=== PATIENT | male | born 2000 | race Caucasian/White ===

== ENCOUNTER 2023-03-13 08:53 | Emergency (ER) | payer SELFPAY ==
[2023-03-13 09:05] VITALS: BMI 20.4
[2023-03-13 09:10] VITALS: TEMP 36.8
--- NOTE | 2023-03-13 09:13 | CT_ITS ---
WS: [id number] CT HEAD NONCONTRAST HISTORY: andres TECHNIQUE: Contiguous axial imaging performed through the brain in 2.5 mm imaging. Bone and soft tiss ue windows. Sagittal and coronal reformats reviewed. All CT scans at [facility] use at least one of these dose optimization techniques: automated exposure control; mA and/or kV adjustment per pa tient size (includes targeted exams where dose is matched to clinical indication); or iterative recon struction. DLP: 1044.23 mGy.cm COMPARISON: None available. No acute intracranial hemorrhage, midline shift or mass effect. No atrophy or prior infarcts or herniation. CSF collection in the retrocerebellar region extends bila terally. There is no mass effect upon the brain. Consistent with bilateral retrocerebellar arachnoid cysts. Ventricles: Normal size with no hydrocephalus. No inferior displacement the cerebellar tonsil. Paranasal sinuses: As visualized are clear. Mastoid air cells: Well pneumatized. Calvarium and scalp: Skull is intact with no soft tissue edema or swelling. IMPRESSION: 1. No acute intracranial hemorrhage or edema. 2. No ventriculomegaly or mass effect. 3. Retrocerebellar arachnoid cyst.
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
[2023-03-13 10:21] VITALS: BP 120/66; PULSE 59; O2SAT 99
[2023-03-13] MEDS: ondansetron 4 MG Tablet PO (10:21)
[2023-03-13] MEDS: naproxen 500 mg Tablet PO (10:22)
[2023-03-13 10:24] VITALS: BP 131/72; PULSE 67; O2SAT 99
== END 2023-03-13 10:26 | disposition home or self-care (01) ==
PROVIDERS: Emergency Provider Emergency Medicine
DX: S09.8XXA Other specified injuries of head, initial encounter (principal); W50.0XXA Accidental hit or strike by another person, initial encounter; Y93.71 Activity, boxing
CPT/HCPCS: 70450; 99284; Q0162

== ENCOUNTER 2023-04-22 15:31 | Emergency (ER) | payer SELFPAY ==
[2023-04-22 15:35] VITALS: BP 117/78; PULSE 87; RESP 16; TEMP 37.1; O2SAT 98; BMI 20.4
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
== END 2023-04-22 17:01 | disposition home or self-care (01) ==
PROVIDERS: Emergency Provider Physician Assistant
DX: S80.00XA Contusion of unspecified knee, initial encounter (principal); S16.1XXA Strain of muscle, fascia and tendon at neck level, initial encounter; V89.2XXA Person injured in unspecified motor-vehicle accident, traffic, initial encounter
CPT/HCPCS: 72040; 99283

== ENCOUNTER 2023-07-26 10:15 | Emergency (ER) | payer SELFPAY ==
[2023-07-26 10:28] VITALS: BP 125/75; PULSE 75; RESP 18; TEMP 36.3; O2SAT 98
[2023-07-26 10:34] VITALS: BP 125/75; PULSE 75; RESP 18; O2SAT 98
--- NOTE | 2023-07-26 10:35 | ED_ITS ---
HPI - General Adult General: Chief complaint: Nausea/Vomiting/Diarrhea Stated complaint: Fever, N/V, body aches Time Seen by Provider: 07/26/23 10:16 Source: patient Mode of arrival: ambulatory Limitations: no limitations History of Present Illness: Patient is a 23-year-old male who presents to ED today requesting a return to work note. Patient states approximately 5 to 6 days ago he began having albaro dyaches, nausea, vomiting, subjective fevers, and a mild cough. He states he lives with his mother who is also ill with high fevers of up to 101, body aches, vomiting, cough. He states both of them are recovering and most of his symptoms have completely subsided apart from some mild bodyaches. He has not run fevers in several days. 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 Onset (ago): day(s) Severity: mild Pain Consistency: now resolved Relieving factors: none Exacerbating factors: none Associated symptoms: Deny chest pain, diaphoresis, dyspnea, headache(s), malaise, nausea, rash or vomiting Treatments prior to arrival: none Review of Systems Const: Reports: body aches; Denies: fever(s), chills, change in appetite, change in weight, fatigue, malaise, night sweats or diaphoresis Eyes: Denies: change in vision, blurry vision, photophobia, eye discomfort, eye discharge, eye redness, floaters or seeing flashes ENMT: Denies: throat pain, odynophagia, ear or mastoid pain, nasal discharge, nasal congestion or sinus pain Card: Denies: chest pain Resp: Denies: dyspnea GI: Denies: abdominal pain, nausea, vomiting or diarrhea Musc: Denies: neck pain, back pain, extremity pain or joint pain Skin/Breast: Denies: rash Neuro: Denies: headache(s) or dizziness Physical Exam Const: COMMON NORMALS: no acute distress, average body habitus, patient oriented x3, no limitations, healthy appearing, alert and well nourished G ENERAL APPEARANCE: cooperative ORIENTATION/CONSCIOUSNESS: Yes awake, Yes oriented to person, Yes oriented to place and Yes oriented to time HENMT: COMMON NORMALS: normocephalic, atraumatic, hearing grossly normal bilaterally, external ears normal, EAC's normal, TM's normal bilaterally, Normal external nose present, Normal nasal mucous membranes and turbinates present, moist oral mucous membranes and oropharynx normal HEAD & SCALP: normal to inspection, normocephalic and atraumatic FACE & SINUS: normal facial exam and sinuses nontender NOSE: Normal external nose present and Normal nasal mucous membranes and turbinates present EXTERNAL EAR: Yes external ears normal EXTERNAL AUDITORY CANAL: EAC's normal TYMPANIC MEMBRANE: TM's normal bila terally MOUTH: Normal oral and palatal mucosa present and lip normal THROAT: posterior oropharynx normal, tonsils normal and uvula midline Eye: COMMON NORMALS: Equal, round and reactive pupils present, EOMs intact bilaterally and conjunctivae normal CONJUNCTIVA: Yes conjunctivae normal PUPIL: Yes Equal, round and reactive pupils present Neck/C-Spine: COMMON NORMALS: no lymphadenopathy GENERAL: Yes normal visual inspection Resp: COMMON NORMALS: normal respiratory effort and clear to auscultation yamel aterally AUSCULTATION: clear to auscultation bilaterally Cardio: COMMON NORMALS: regular rate and regular rhythm RATE: regular rate RHYTHM: regular rhythm GI: COMMON NORMALS: Normal to inspection, nondistended, normoactive bowel sounds present, Soft to palpation and non-tender PALPATION: Yes Soft to palpation Back/Pelvis: COMMON NORMALS: thoracic and lumbar spine normal to inspection Extremity: GENERAL: Yes normal exam except as noted Neuro: COMMON NORMALS: patient oriented x3, moves all extremities, no focal motor deficits and no sensory deficits noted SENSORIUM/ORIENTATION: Yes alert, Yes oriented to person, Yes oriented to place and Yes oriented to time Skin: COMMON NORMALS: no rashes or lesions noted GENERAL SKIN EXAM: no rashes or lesions noted Course Vital Signs: Vital signs: Vital Signs Temperature 97.4 F L 07/26/23 10:28 Pulse Rate 75 07/26/23 10:34 Respiratory Rate 18 07/26/23 10:34 Blood Pressure 125/75 07/26/23 10:34 Pulse Oximetry 98 07/26/23 10:34 Oxygen Delivery Me thod Room Air 07/26/23 10:34 [facility] - General Adult Medical Decision Making Patient appears in no acute distress. His vital signs are normal. Symptoms most likely consistent with a viral illness. He is almost completely recovered and is fairly asymptomatic at this time. He is cleared to return for his shift tomorrow. No radiology studies performed this visit Discharge Plan Discharge Patient Disposition: Home Clinical Impression: Viral illness Condition: Stable Prescriptions: No Action ondansetron 4 mg tablet,disintegrating 4 mg PO Q6H PRN (Reason: nausea and vomiting) Qty: 14 0RF Discharge Orders: Discharge ED (Routine); Ordered 07/26/23 Ordered By: Estrellita Ye Stand Alone Forms: Work/School Release Coding Level of Care Code ED Psychologist Industrial Organizational for Jauna Turpin
== END 2023-07-26 10:41 | disposition home or self-care (01) ==
PROVIDERS: Emergency Provider Physician Assistant
DX: B34.9 Viral infection, unspecified (principal)
CPT/HCPCS: 99281